=== PATIENT | male | born 2000 | race Caucasian/White ===

== ENCOUNTER 2018-12-22 08:55 | Emergency (ER) | payer OTHER, SELFPAY ==
[2018-12-22] MEDS ORDERED: IBUPROFEN 400 MG TAB ONE (09:34)
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
== END 2018-12-22 10:13 | disposition home or self-care (01) ==
LOC: ER 08:55
DX: M23.8X2 Other internal derangements of left knee (principal); V86.59XA Driver of other special all-terrain or other off-road motor vehicle injured in nontraffic accident, initial encounter; Y93.I9 Activity, other involving external motion; Y92.9 Unspecified place or not applicable